=== PATIENT | male | born 1965 | race Caucasian/White ===

== ENCOUNTER → 2016-06-09 | Outpatient (CLI) | payer OTHER ==
[~2016-06-09] MED LIST: ASPIR-LOW81 MG PO; LABETALOL HCL200 MG PO
== END | disposition home or self-care (01) ==
LOC: NUC 06:09
DX: R10.9 Unspecified abdominal pain (principal)
CPT/HCPCS: 78227; A9537; J2270

== ENCOUNTER 2016-06-20 09:32 | Day surgery (SDC) | payer OTHER ==
[~2016-06-20] VITALS: Ht 167.6 cm; Wt 88.0 kg
[~2016-06-20 09:32] MED LIST changes: +ZESTRIL10 MG PO
[2016-06-20 10:05] VITALS: BP 150/85
[2016-06-20] MEDS ORDERED: NORCO 5/3251 TABLET PO (13:14)
[2016-06-20 14:17] VITALS: BP 147/86
[2016-06-20 15:20] VITALS: BP 167/90
[2016-06-20 16:20] VITALS: BP 154/88
== END 2016-06-20 16:32 | disposition home or self-care (01) ==
LOC: SDC 09:32
DX: K80.10 Calculus of gallbladder with chronic cholecystitis without obstruction (principal); I10 Essential (primary) hypertension; E66.9 Obesity, unspecified; Z68.31 Body mass index [BMI] 31.0-31.9, adult
CPT/HCPCS: 74300; 88304; C1769; J0330; J1100; J1170; J2250; J2405; J2710; J2765; J3010; S0020